=== PATIENT | female | born 1965 | race Hispanic/Latino ===

== ENCOUNTER 2024-11-13 12:56 | Emergency (ER) | payer OTHER ==
[2024-11-13 14:14] VITALS: PULSE 74; RESP 20; TEMP 97.7; O2SAT 97
== END 2024-11-13 15:15 | disposition home or self-care (01) ==
LOC: FSED 13:00
DX: M79.671 Pain in right foot (principal); S90.31XA Contusion of right foot, initial encounter; W01.0XXA Fall on same level from slipping, tripping and stumbling without subsequent striking against object, initial encounter; Y93.01 Activity, walking, marching and hiking; Y92.89 Other specified places as the place of occurrence of the external cause; E66.01 Morbid (severe) obesity due to excess calories
CPT/HCPCS: 99284